=== PATIENT | female | born 1960 | race Caucasian/White ===

== ENCOUNTER → 2016-08-27 | Outpatient (CLI) | payer OTHER ==
[~2016-08-27] MED LIST: ACYCLOVIR200 MG PO; ATIVAN 0.5MG0.5 MG PO; CLARITIN10 MG PO; PRILOSEC20 MG PO; PROZAC20 MG PO; VITAMIN D1000 UNI1 PO; ZANTAC (NON-FO150 MG PO
[2016-08-27 16:36] LABS: CREATININE 0.7 mg/dL (0.5-1.1); ESTIMATED GFR (MDRD EQUATION) > 60
== END | disposition disaster alternative care site (69) ==
LOC: GRAD 15:51
PROVIDERS: Registered Nurse
DX: K86.89 Other specified diseases of pancreas (principal); M43.06 Spondylolysis, lumbar region